=== PATIENT | female | born 1985 | race Caucasian/White ===

== ENCOUNTER 2018-05-11 17:33 | Emergency (ER) | payer OTHER, SELFPAY ==
[2018-05-11 17:49] VITALS: BP 109/73; PULSE 87; RESP 16; O2SAT 100; BMI 21.4
[2018-05-11] MEDS: KETOROLAC 60 MG/2 ML VIAL IM (19:38)
[2018-05-11] MEDS: ACETAMINOPHEN 325 MG TABLET 975 MG PO (19:38)
[2018-05-11 20:40] VITALS: BP 97/66; PULSE 77; RESP 16; O2SAT 100
--- NOTE | 2018-05-11 22:11 | ED_ITS ---
HPI - Extremity Injury (Upper) <JAMES Kevin - Last Filed: 05/11/18 22:11> General Chief Complaint: Extremity Injury, Upper Stated Complaint: states swollen lymph nodes left upper arm Time Seen by Provider: 05/11/18 18:57 Source: patient Mode of arrival: ambulatory Limitations: no limitations History of Present Illness HPI narrative: Patient presents with chief complaint of swollen lymph nodes in her left axilla. She denies any wounds, fevers, nausea vomiting diarrhea. She denies any current cough or congestion. She said she fell a little congested earlier, but no longer. She noticed her lymph nodes during his fall yesterday. She has not taken anything for pain or inflammation at home. She has not applied ice or heat. Otherwise she has no complaints at this point time. She does complain of the pain when her arm is held over her lymph nodes. She denies cold left arm and denies arm swelling. Related Data Previous Rx's Medication Instructions Recorded ibuprofen 600 mg PO Q8HP PRN #20 tab 10/20/16 Allergies Allergy/AdvReac Type Severity Reaction Status Date / Time No Known Drug Allergies Allergy Verified 05/11/18 17:48 Review of Systems <JAMES Kevin - Last Filed: 05/11/18 22:11> Review of Systems GENERAL: Denies chills, fatigue, malaise, fever, sweats. HEENT: Denies sinus pain, ear pain, sore throat, difficulty swallowing, dizziness. RESPIRATORY: Denies dyspnea, cough, wheezing, hemoptysis, sputum. CARDIOVASCULAR: Denies chest pain, palpitations, orthopnea, edema, GASTROINTESTINAL: Denies nausea, vomiting, abdominal pain, diarrhea, constipation, melena. : Denies dysuria, frequency, incontinence, hematuria, urinary retention. MUSCULOSKELETAL: See HPI SKIN: Denies rash, skin lesions, or other NEUROLOGIC: Denies weakness, headache, numbness, change in speech, confusion, seizures, incoordination. PSYCHIATRIC: No concerning psychosocial issues. 12 point review of systems is negative except for those stated above Exam <JAMES Kevin - Last Filed: 05/11/18 22:11> Narrative Exam Narrative: GENERAL: This is a well-nourished, well-developed patient, in no acute distress HEAD: Atraumatic. Normocephalic. No temporal or scalp tenderness. EYES: Pupils equal round and reactive. Extraocular motions intact. No scleral icterus. No injection or drainage. ENT: Nose without bleeding, purulent drainage or septal hematoma. Throat without erythema, tonsillar hypertrophy or exudate. Uvula midline. Airway patent. NECK: Trachea midline. No JVD or lymphadenopathy. Supple, nontender, no meningeal signs. CARDIOVASCULAR: Regular rate and rhythm without murmurs, gallops, or rubs. RESPIRATORY: Clear to auscultation. Breath sounds equal bilaterally. No wheezes , rales, or rhonchi. No cough on exam. No increased respiratory effort. GASTROINTESTINAL: Abdomen soft, non-tender, nondistended. No hepato-splenomegaly , or palpable masses. No guarding. EXTREMITIES: Left arm is warm. Positive radial pulse left arm. Palpable lymph node left axilla. No palpable lymph node right axilla. Full range of motion noted left arm. BACK: Nontender without deformity or crepitance. No flank tenderness. NEURO: AOx3. SKIN: No rash or erythema. No erythema, wound or rash noted left axilla. Initial Vital Signs Initial Vital Signs: Vital Signs Pulse Rate 87 05/11/18 17:49 Respiratory Rate 16 05/11/18 17:49 Blood Pressure 109/73 05/11/18 17:49 Pulse Oximetry 100 05/11/18 17:49 <Rolf Sepulveda DO - Last Filed: 05/11/18 22:29> Initial Vital Signs Initial Vital Signs: Vital Signs Pulse Rate 87 05/11/18 17:49 Respiratory Rate 16 05/11/18 17:49 Blood Pressure 109/73 05/11/18 17:49 Pulse Oximetry 100 05/11/18 17:49 Course <SHAN Kevin-BC - Last Filed: 05/11/18 22:11> Orders Ordered: Discontinued Medications Acetaminophen (Tylenol) 975 mg PO NOW ONE Stop: 05/11/18 19:12 Last Admin: 05/11/18 19:38 Dose: 975 mg Ketorolac Tromethamine (Toradol) 60 mg IM NOW ONE Stop: 05/11/18 19:12 Last Admin: 05/11/18 19:38 Dose: 60 mg Vital Signs - 8 hr 05/11/18 17:49 05/11/18 20:40 Pulse Rate 87 77 Respiratory Rate 16 16 Blood Pressure 109/73 97/66 Pulse Oximetry 100 100 <Rolf Sepulveda DO - Last Filed: 05/11/18 22:29> Orders Ordered: Discontinued Medications Acetaminophen (Tylenol) 975 mg PO NOW ONE Stop: 05/11/18 19:12 Last Admin: 05/11/18 19:38 Dose: 975 mg Ketorolac Tromethamine (Toradol) 60 mg IM NOW ONE Stop: 05/11/18 19:12 Last Admin: 05/11/18 19:38 Dose: 60 mg Vital Signs - 8 hr 05/11/18 17:49 05/11/18 20:40 Pulse Rate 87 77 Respiratory Rate 16 16 Blood Pressure 109/73 97/66 Pulse Oximetry 100 100 MDM - Extremity Injury (Upper) <SHAN Kevin-BC - Last Filed: 05/11/18 22:11> MDM Narrative Medical decision making narrative: Patient presented with chief complaint of swollen lymph node in left arm. She is hemodynamically stable emergency department. She denies any acute complaints including sore throat, ear pain, etc. We treated her with Toradol and Tylenol for her pain. I discussed at length monitoring her lymph node for worsening or no improvement, especially given her family history of breast cancer. I encouraged her to follow up with her primary care physician if needed or come back to the emergency department for any acute concerns. Discharge Plan Departure Patient Disposition: Home Clinical Impression: Lymphadenopathy Discharge Date/Time: 05/11/18 20:41 Interventions: ED Discharge Assessment Last Done: 05/11/18 20:40 Instructions: DI for Lymphadenopathy Activity Restrictions/Additional Instructions: Try [id number] medications as well as heat packs and ice packs for comfort. Follow up with her primary care provider if new or worsening symptoms. Follow up with primary care provider if the lymph nodes do not improve. Prescriptions: No Action ibuprofen 600 MG tablet 600 mg PO Q8HP PRNQty: 20 RF: 0 Referrals: Roel De Dios CNP [Primary Care Provider] - <Rolf Sepulveda DO - Last Filed: 05/11/18 22:29> Cosign ED Attending Wendieature Attestation: I was available for consultation during this patient's emergency department encounter
== END 2018-05-11 20:41 | disposition home or self-care (01) ==
PROVIDERS: Emergency Provider Nurse Practitioner Family; PCP Registered Nurse Diabetes Educator
DX: R59.1 Generalized enlarged lymph nodes (principal)
CPT/HCPCS: 96372; 99282; 99283; J1885

== ENCOUNTER 2019-11-02 16:44 | Emergency (ER) | payer OTHER, SELFPAY ==
[2019-11-02 17:13] VITALS: PULSE 83; RESP 16; TEMP 37.1; O2SAT 100
[2019-11-02 17:32] LABS: Appearance Urine UA CLEAR; Bilirubin Urine UA NEGATIVE (NEGATIVE); Color Urine UA YELLOW; Glucose Urine UA NEGATIVE (Negative); Ketones Urine UA NEGATIVE (NEGATIVE); Leukocyte Esterase Urine UA 3+ (NEGATIVE); Nitrite Urine UA NEGATIVE (Negative); Occult Blood Urine UA 3+ (Negative); Protein Urine UA NEGATIVE (Negative); Specific Gravity Urine UA <=1.005 (1.000-1.035); Urobilinogen Urine UA 0.2 E.U./dL (0.2)
[2019-11-02 17:40] LABS: pH Urine UA 6.5 (4.5-8.0)
[2019-11-02 17:41] LABS: Bacteria Urine Few (2-10); Culture Indicated Urine Specimen Cultured; RBC Urine 0-1/HPF (0-5/HPF); WBC Urine 30-100/HPF (0-5/HPF)
--- NOTE | 2019-11-02 18:10 | ED.FEMALEGU ---
HPI - Female Genitourinary General Chief complaint: Urogenital-Female Stated complaint: UTI BLEEDING Time Seen by Provider: 11/02/19 18:03 Source: patient Mode of arrival: Ambulatory Limitations: no limitations History of Present Illness HPI Narrative: This is a 34-year-old female who comes to the emergency department with complaint of frequency, dysuria and urgency. Patient has also noticed some blood in her urine and when she wipes. No fevers, she has had a little bit of low back pain. She states that her pain was significantly worse earlier it has improved somewhat now. She did try an old prescription of Pyridium. She has had symptoms for about 24 hours total. She has not been feverish or had any chills. No nausea or vomiting. She has some suprapubic discomfort but no other belly pain. She denies any issues that are new with bowel movements, she does not think she is having any vaginal bleeding discharge. She denies any other medical issues besides asthma. She has had a prior and hemorrhoidectomy. She denies allergies to medications. Related Data Previous Rx's Medication Instructions Recorded ibuprofen 600 mg PO Q8HP PRN #20 tab 10/20/16 cephalexin [Keflex] 500 mg PO BID #10 cap 11/02/19 phenazopyridine [Pyridium] 200 mg PO TID PRN #6 tab 11/02/19 Allergies Allergy/AdvReac Type Severity Reaction Status Date / Time No Known Drug Allergies Allergy Verified 05/11/18 17:48 Review of Systems Review of Systems ROS Unobtainable: All systems reviewed & are unremarkable except as noted in HPI and below Patient History Medical History (Updated 11/02/19 @ 18:13 by Maryan De Jesus DO) Asthma (Acute) Surgical History (Updated 11/02/19 @ 18:11 by Maryan De Jesus DO) H/O hemorrhoidectomy (Acute) History of (Acute) Substance Use Type: does not use Exam Narrative Exam Narrative: GENERAL: Alert and oriented x three, thin, well-appearing female in mild distress HEENT: Head normocephalic, atraumatic, EOMI, pupils reactive, face symmetric, moist mucous membranes NECK: Supple, full range of motion CARDIOVASCULAR: Regular rate and rhythm without murmurs, rubs or gallops. RESPIRATORY: Breath sounds equal bilaterally, no wheezes rales or rhonchi. ABDOMEN: Soft, mild suprapubic tenderness. Normoactive bowel sounds all 4 quadrants. No guarding or rebound, rigidity, no mass : No CVA tenderness EXTREMITIES: Normal range of motion, no clubbing or edema. Neurovascularly intact NEUROLOGICAL: Cranial nerves II through XII grossly intact. Moving all extremities SKIN: Warm, dry, no petechiae, no rashes or lesions. Initial Vital Signs Initial Vital Signs: Vital Signs Temperature 98.8 F 11/02/19 17:13 Pulse Rate 83 11/02/19 17:13 Respiratory Rate 16 11/02/19 17:13 Pulse Oximetry 100 11/02/19 17:13 Course Orders Ordered: ED Orders 11/02/19 17:17 UA Complete [Urinalysis and Microscopic] Stat Urine Culture Stat Vital Signs Vital signs: Vital Signs - 8 hr 11/02/19 17:13 Temperature 98.8 F Pulse Rate 83 Respiratory Rate 16 Pulse Oximetry 100 MDM - Female Genitourinary Lab Data Labs: Lab Results 11/02/19 Range/Units 17:17 Urine Color Yellow Urine Appearance Clear Urine pH 6.5 (4.5-8.0) Ur Specific [place] <=1.005 (1.000-1.035) Urine Protein Negative (Negative) Urine Glucose (UA) Negative (Negative) g/dL Urine Ketones Negative (NEGATIVE) Urine Occult Blood 3+ H (Negative) Urine Nitrate Negative (Negative) Urine Bilirubin Negative (NEGATIVE) Urine Urobilinogen 0.2 (0.2) E.U./dL Ur Leukocyte Esterase 3+ H (NEGATIVE) Urine RBC 0-1/hpf (0-5/HPF) Urine WBC 30-100/hpf H (0-5/HPF) Urine Bacteria Few (2-10) H (None) Ur Culture Indicated? Specimen cultured MDM Narrative Medical decision making narrative: Patient's urine and clinical symptoms are consistent with UTI at this time. Patient started on Keflex with urine culture pending. Also given a prescription for Pyridium as she has found this helpful in the past. Discharge Plan Departure Patient Disposition: Home Clinical Impression: UTI (urinary tract infection) Qualifiers: Urinary tract infection type: acute cystitis Hematuria presence: with hematuria Qualified Code(s): N30.01 - Acute cystitis with hematuria Discharge Date/Time: 11/02/19 18:20 Instructions: DI for Urinary Tract Infection (UTI) Activity Restrictions/Additional Instructions: Follow-up in the next 3-5 days with your physician if your symptoms are not improving. Take antibiotics until gone. Start these this evening. You may take pyridium 1 tablet every 8 hours as needed for symptoms. This will cause her urine to be bright orange. Return for fevers greater 100.4 F, persistent vomiting, increasing abdominal or flank pain, inability to urinate, lightheadedness, passing out or other new or concerning symptoms. Prescriptions: New cephalexin [Keflex] 500 mg capsule 500 mg PO BID Qty: 10 RF: 0 phenazopyridine [Pyridium] 200 mg tablet 200 mg PO TID PRN (Reason: pain) Qty: 6 RF: 0 No Action ibuprofen 600 MG tablet 600 mg PO Q8HP PRNQty: 20 RF: 0 Referrals: Roel De Dios CNP [Primary Care Provider] -
== END 2019-11-02 18:20 | disposition home or self-care (01) ==
PROVIDERS: Emergency Medicine; Emergency Provider Emergency Medicine; PCP Registered Nurse Diabetes Educator
DX: N30.01 Acute cystitis with hematuria (principal)
CPT/HCPCS: 81001; 87077; 87086; 87186; 99281; 99282

== ENCOUNTER → 2020-06-17 14:52 | Outpatient (CLI) | payer OTHER, SELFPAY ==
--- NOTE | 2020-06-17 | DI.MG.S_ITS ---
BILATERAL DIGITAL DIAGNOSTIC MAMMOGRAM 3D/2D: 06/17/2020 CLINICAL: Bilateral breast pain. Comparison is made to exams dated: 02/18/2019 mammogram and 02/20/2017 mammogram - [facility]. The tissue of both breasts is heterogeneously dense. This may lower the sensitivity of mammography. There is a new 1.2 cm irregular equal density mass in the right breast central to the nipple middle depth. This is seen in additional views. There is architectural distortion associated with the mass. No other significant masses, calcifications, or other findings are seen in either breast. IMPRESSION: INCOMPLETE: NEEDS ADDITIONAL IMAGING EVALUATION The new 1.2 cm irregular equal density mass in the right breast is indeterminate. An ultrasound is recommended for further evaluation and is scheduled to immediately follow this study. There is no abnormality seen in the right breast to correspond with the area of clinical concern, palpable abnormality, and pain indicated by square marker in the posterior depth near the inframammary fold, however, ultrasound is recommended which is scheduled to immediately follow this examination. This exam was interpreted at Station ID: [id number]. NOTE: For mammograms, a report in lay terms will be sent to the patient. Approximately 15% of breast malignancies will not be visualized mammographically. In the management of a palpable breast mass, a negative mammogram must not discourage biopsy of a clinically suspicious lesion. Electronically Signed By: Tobi Marie M.D. aty/:06/17/2020 15:58:15 ACR BI-RADS Category 0: Incomplete [id number]
--- NOTE | 2020-06-17 | DI.US.S_ITS ---
LIMITED ULTRASOUND OF RIGHT BREAST AND AXILLA: 06/17/2020 CLINICAL: Focal right breast pain. Patient returns for additional imaging over a suspected mass in the right breast. Comparison is made to exams dated: 06/17/2020 mammogram - [facility], 02/18/2019 mammogram, and 02/20/2017 mammogram - [facility]. Color flow and real-time ultrasound of the right breast 5 o'clock, 9 o'clock, and axilla regions were performed. Sanchez scale images of the real-time examination were reviewed. There is a 1.3 cm x 1 cm x 1.1 cm oval mass with indistinct and angular margins in the right breast at 9 o'clock anterior depth 2 cm from the nipple. This oval mass is hypoechoic. This correlates to the reported pain and with mammography findings. Color flow imaging demonstrates that there is no vascularity present. There also is a 1 cm x 0.9 cm x 0.5 cm oval mass in the right breast at 5 o'clock posterior depth 10 cm from the nipple. This oval mass is hypoechoic with fatty hilum. This correlates as palpated to area of concern near the inferior mammary fold and to the reported area of pain. Color flow imaging demonstrates that there is hilar vascularity present. No significant abnormalities were seen sonographically in the right axilla. IMPRESSION: SUSPICIOUS OF MALIGNANCY The 1.3 cm x 1 cm x 1.1 cm oval mass in the right breast at 9 o'clock anterior depth is suspicious of malignancy. An ultrasound guided biopsy is recommended. The 1 cm x 0.9 cm x 0.5 cm oval mass in the right breast at 5 o'clock posterior depth resembles a lymph node and is probably benign. A follow up ultrasound and mammogram in 6 months is recommended to document stability. However, further evaluation with biopsy may be considered based on pathology results of the biopsy. Findings and recommendations were discussed with the patient by Dr. Rosado during today's examination. This exam was interpreted at Station ID: [id number]. Electronically Signed By: Tobi Marie M.D. aty/:06/17/2020 17:28:57 letter sent: Biopsy Required Ultrasound BI-RADS: 4 Suspicious for malignancy
== END ==
PROVIDERS: PCP Family Medicine; Referring Provider Family Medicine; Visit Provider Family Medicine
DX: R92.8 Other abnormal and inconclusive findings on diagnostic imaging of breast (principal); N64.4 Mastodynia; N63.15 Unspecified lump in the right breast, overlapping quadrants; N63.14 Unspecified lump in the right breast, lower inner quadrant
CPT/HCPCS: 76642; 77066; G0279

== ENCOUNTER → 2020-07-05 09:03 | Outpatient (CLI) | payer OTHER, SELFPAY ==
--- NOTE | 2020-07-05 | DI.MG.S_ITS ---
UNILATERAL RIGHT DIGITAL DIAGNOSTIC MAMMOGRAM POST-PROCEDURE IMAGING FOR MARKER PLACEMENT: 07/05/2020 CLINICAL: Right post clip. Comparison is made to exams dated: 06/17/2020 mammogram - [facility], 02/18/2019 mammogram, and 02/20/2017 mammogram - [facility]. The tissue of right breast is heterogeneously dense. This may lower the sensitivity of mammography. There is a mass in the right breast middle depth superior region seen on the mediolateral oblique view only. There also is a marker clip in the appropriate position in the right breast anterior depth lateral region seen on the craniocaudal view only. This marker clip placement is at the biopsy site. No other significant masses or calcifications are seen in the breast. IMPRESSION: INCOMPLETE: NEEDS ADDITIONAL IMAGING EVALUATION The mass in the right breast middle depth superior region seen on the mediolateral oblique view only needs additional evaluation. There was a successful marker clip placement in the right breast anterior depth lateral region seen on the craniocaudal view only. This exam was interpreted at Station ID: [id number]. NOTE: For mammograms, a report in lay terms will be sent to the patient. Approximately 15% of breast malignancies will not be visualized mammographically. In the management of a palpable breast mass, a negative mammogram must not discourage biopsy of a clinically suspicious lesion. Electronically Signed By: Amber glover/romy:07/06/2020 09:04:17 ACR BI-RADS Category 0: Incomplete [id number]
--- NOTE | 2020-07-05 09:28 | DI.US.S_ITS ---
Patient Name: RODRIGO GONZALES date: 1985 Sex: F Attending Physician: KORY Indications: Date: 07/05/2020 10:34 At the request of: NYLA HORN D.O. Procedure: US bx breast perc w vac device ULTRASOUND GUIDED BIOPSY RIGHT BREAST USING VACUUM DEVICE WITH MARKING DEVICE INSERTED AND POST DIGITAL MAMMOGRAPHIC IMAGIN07/05/2020 CLINICAL: Right breast mass biopsy with clip placement. PATIENT CONSENT: Risks (minor bleeding, infection, vasovagal reaction and repeat procedure), benefits and alternatives were explained to the patient and written informed consent was obtained. Correlation is made to exams dated: 07/05/2020 mammogram, 06/17/2020 ultrasound, 06/17/2020 mammogram - [facility], 02/18/2019 mammogram, and 02/20/2017 mammogram - [facility]. An ultrasound guided biopsy using real-time ultrasound was performed for the round mass located in the right breast at 9 o'clock middle depth. This was described on the previous ultrasound report. The skin was prepped in the usual manner. Local anesthetic was administered to the access site. The abnormality was approached from the lateral aspect. A 13 gauge biopsy needle was placed adjacent to the abnormality under ultrasound guidance. Once the needle was documented to be in the correct location, three specimens were obtained using the Mammotome biopsy system. A Celera clip was inserted into the biopsy cavity. Post procedure digital mammographic imaging demonstrates the location device at the targeted area. The specimens were sent to the laboratory for pathological analysis. IMPRESSION: ULTRASOUND GUIDED BIOPSY MALIGNANT Ultrasound guided biopsy of the mass in the right breast at 9 o'clock middle depth was successful. 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 Pathology results are concordant with imaging findings. A surgical/oncologic consultation is recommended. This exam was interpreted at Station ID: [id number]. Amber glover,/romy:07/11/2020 14:22:21 Continued Report - Page 2 of 2 Patient Name: RODRIGO GONZALES date: 1985 Sex: F Attending Physician: KORY Indications: Date: 07/05/2020 10:34 At the request of: NYLA HORN D.O. Procedure: US bx breast perc w vac device
--- NOTE | 2020-07-05 10:16 | PATH_ITS ---
[facility] Accession Number: [id number] . 01 Material submitted: . breast - RIGHT BREAST MASS 9:00 1 CM FN . 01 Clinical history: . RIGHT BREAST MASS . 02 Diagnosis: Right Breast Mass, 9 o'clock, 1 cm From Nipple, Needle Core Biopsies: Invasive ductal carcinoma; see Cancer Case Summary. . . . CANCER CASE SUMMARY - BREAST . Procedure: Needle biopsy. Specimen laterality: Right. Tumor site: Clock position: 9 o'clock. Distance from nipple: 1 cm. Tumor size: At least 6 mm in greatest linear extent. Histologic type: Invasive carcinoma of no special type (ductal). Histologic grade: Glandular/tubular differentiation: Score 2. Nuclear pleomorphism: Score 2. Mitotic rate: Score 1. Overall grade: Grade 1. Ductal carcinoma in situ: Present. Architectural patterns: Cribriform. Nuclear grade: Grade 2 (intermediate). Necrosis: Not identified. Lymphovascular invasion: Not identified. Microcalcifications: Focally present in invasive carcinoma. . . CAP BREAST BIOMARKER REPORTING TEMPLATE: . Estrogen Receptor (ER) Status: Positive, 80%. Average intensity of staining: Intermediate. Primary antibody: SP1 Progesterone Receptor (PgR) Status: Positive, 90%. Average intensity of staining: Strong. Primary antibody: 1E2 HER2 (by immunohistochemistry): Positive (3+). Percentage of cells with uniform intense complete membrane stainin%. Primary antibody: 4B5 . . Cold Ischemia and Fixation Times: Meets requirements in the latest version of the ASCO/CAP guidelines. Testing performed on Block Number: . TECHNICAL NOTE: The scoring criteria for breast biomarkers by immunohistochemistry is based on the current ASCO/CAP guidelines (Darin et al, Arch Pathol Lab Med 2010: 134(6): 907-922 / Alejandra Enriquez, Arch Pathol Lab Med 2014: 138(2):241-256). Deparaffinized sections of formalin fixed tissue (along with appropriate positive controls) are incubated with the above antibody(s). Using the automated [place] stainer, tissue is incubated with the designated antibody* which is then localized by a non-biotin, dual polymer detection system. The external controls are reviewed for appropriate reactivity and found to be adequate. Results on the target cell population are indicated above. These tests have not been validated on decalcified tissue. * This test was developed and its performance characteristics determined by [facility]. It has not been cleared or approved by the U.S. Food and Drug Administration. The FDA has determined that such clearance or approval is not necessary. This test is used for clinical purposes. It should not be regarded as investigational or for research. MRV 07/08/2020 1633 Local . 02 Comment: As part of routine quality analyst, Dr. Lyons has reviewewd this case and agrees with the diagnosis of invasive ductal carcinoma. The finding of invasive ductal carcinoma was reported to ISIDORO Bowman by Dr. Simms on 07/07/2020. . 02 Electronically signed: . Frank Simms MD, PhD, Pathologist NPI- [id number] . 01 Gross description: . Received in one formalin-filled container, labeled with the patient's name and labeled RT breast mass biopsy 9 o'clock 1 cm FN, are four fragments of light yellow-zhong tissue which range in size from 0.2 x 0.2 x 0.1 cm to 2.0 x 0.3 x 0.2 cm. All fragments are totally submitted in one cassette. No collection date or time per container. Possible collection date and time per requisition: 07/05/20 at 10:19. Possible total fixation time: Approximately 16 hours. ([id number]) /FRR 07/06/2020217 Local . 02 Pathologist provided ICD-10: C50.911 . 02 CPT . 636531, [id number], [id number] Performed at: 01 [facility] [address] [facility], [place], [place] [id number] MD Karri Mccormick MD Phone: [phone] Performed at: 02 [facility] [id number] [place] [id number] MD Monisha Lyons MD Phone: [phone]
== END ==
PROVIDERS: PCP Family Medicine; Referring Provider Family Medicine; Visit Provider Nurse Practitioner Family
DX: C50.811 Malignant neoplasm of overlapping sites of right female breast (principal); Z17.0 Estrogen receptor positive status [ER+]
CPT/HCPCS: 19083; 77065

== ENCOUNTER 2022-08-27 20:08 | Emergency (ER) | payer OTHER, SELFPAY ==
[2022-08-27 20:24] VITALS: BP 139/77; PULSE 105; RESP 16; TEMP 36.7; O2SAT 100; BMI 22.1
== END 2022-08-27 22:47 | disposition left against medical advice (07) ==
PROVIDERS: Emergency Provider Emergency Medicine; PCP Family Medicine
CPT/HCPCS: 99281